=== PATIENT | female | born 1990 | race Caucasian/White ===

== ENCOUNTER 2017-06-24 20:30 | Observation (INO) | payer OTHER ==
[2017-06-24] MEDS ORDERED: Ondansetron HCl/PF 4 MG/2 ML Vial IVP PRN (21:13)
[2017-06-24 21:20] LABS: #Basophils 0.1 thou/uL (0.0-0.2); #Eosinphils 0.3 thou/uL (0.0-0.7); #Lymphocytes 3.5 thou/uL (1.20-3.40); #Monocytes 0.6 thou/uL (0.11-0.59); %Basophils 0.6 % (0.0-1.0); %Eosinophils 2.8 % (0.0-10.0); %Lymphocytes 33.6 % (21.0-51.0); Mean Corpuscular HGB CONC 36.1 g/dL (32.0-36.0); Mean Corpuscular Hemoglobin 32.5 pg (27.0-31.0); Mean Corpuscular Volume 90.2 fl (81.0-99.0); Mean Platelet Volume 7.5 fL (7.4-10.4); Platelet Count 225 thou/uL (130-400); RBC Distribution Width 11.1 % (11.5-14.5); White Blood Cell (WBC) Count 10.5 thou/uL (4.8-10.8)
[2017-06-24 21:25] LABS: Bilirubin Negative (Negative); Blood, Urine Negative (Negative); Clarity CLEAR (Clear); Glucose, Urine (Dipstick) Negative (Negative); Leukocyte Negative (Negative); Nitrite Negative (Negative); Protein, Urine (Dipstick) Negative (Neg-Trace); Specific Gravity, Urine 1.013 (1.002-1.036); Urobilinogen 0.2 mg/dL (0.2-1.0)
[2017-06-24 21:30] LABS: Bacteria/HPF None Seen HPF (None Seen); Hyaline Casts/LPF 0-3 HYALINE CAST LPF (0-3 Hyaline); Pathc Cast-AUWi Flag 0.54 (0-2.49); RBC/HPF 0-3 HPF (0-3); Squamous Epithelial 0-3 HPF (0-3); WBC/HPF 0-3 HPF (0-3)
[2017-06-24] MEDS ORDERED: Lactated Ringer's 1,000 ML IV SCH (21:30)
[2017-06-24] MEDS: Meperidine HCl/PF 25 MG/ML VIAL SLOW IVP PRN ×2 (21:31→23:47)
[2017-06-24] MEDS: Promethazine HCl 25 MG/ML VIAL IM PRN ×2 (21:31→23:47)
[2017-06-24] MEDS: Lactated Ringer's 1,000 ML IV SCH (21:47)
[2017-06-24 23:14] VITALS: BMI 25.8
[2017-06-25] MEDS: Meperidine HCl/PF 25 MG/ML VIAL SLOW IVP PRN ×2 (03:34→07:42)
[2017-06-25] MEDS: Promethazine HCl 25 MG/ML VIAL IM PRN ×2 (03:35→07:40)
--- NOTE | 2017-06-25 05:48 | HP ---
DATE OF ADMISSION: 06/24/2017 REASON FOR ADMISSION: Right lower quadrant and flank pain with nausea and vomiting. HISTORY OF PRESENT ILLNESS: Ms. Estrada is a 27-year-old primigravida at 21 weeks gestation who repor ts several days of intermittent right-sided back pain. This afternoon, she reports that became more intense radiated down into her groin and was exacerbated with a feeling of the need to vomit, urinate and defecate. She denies vaginal bleeding. She reports an active fetus. She denies contractions. 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 Unremarkable OB history. The antep artum record not available on the unit. PAST MEDICAL HISTORY: None. PAST SURGICAL HISTORY: [place] teeth. ALLERGIES: PENICILLIN. MEDICATIONS: vitamins. SOCIAL HISTORY: Denies tobacco, alcohol, IV drug use. FAMILY HISTORY: Noncontributory. REVIEW OF SYSTEMS: Noncontributory. PHYSICAL EXAMINATION: GENERAL: White female initially in acute pain, unable to get comfortable now, better and resting wit h Stadol 2 mg, Demerol 25 mg. VITAL SIGNS: Temperature 98.6, respirations 18, blood pressure 118/72. HEENT: Within normal limits. LUNGS: Clear to auscultation bilaterally. HEART: Regular rate and rhythm. ABDOMEN: The patient has pain in her back. She does not have CVA tenderness. She also has discomfo rt in her right lower quadrant and groin. EXTREMITIES: Without clubbing, cyanosis or edema. PELVIC: Deferred. FHTs 130s to 140s. No palpable contractions. LABORATORY AND X-RAY FINDINGS: Patient has a white count of 10.5, normal hematocrit, normal diff. U rinalysis was negative for rbc's. IMPRESSION: A 21 weeks gestation with symptoms and exam consistent with nephrolithiasis despite abse nce of rbc's in UA. PLAN: Observation admission, IV hydration, analgesics if necessary with serial exams. No evidence o f labor. We will not perform ultrasound or do cervical length check at this time. If condit ions change, we would consider further evaluation. We will re-evaluate renal colic in 6-8 hours.
[2017-06-25] MEDS: Lactated Ringer's 1,000 ML IV SCH (05:49)
--- NOTE | 2017-06-25 07:28 | PRG ---
DATE OF SERVICE: 06/25/2017 TIME OF SERVICE: 0700 The patient is resting comfortably. Upon awakening, she reports her pain to be at 3-4/10. It still and the right back, radiates to the front of the groin with mild nausea. She reports an active fetus . She denies vaginal bleeding. PHYSICAL EXAMINATION: Physical exam unchanged. Vital signs are stable. IMPRESSION: Persistent right flank pain still consistent with nephrolithiasis. PLAN: We will obtain a bilateral renal ultrasounds to evaluate the ureters and renal system. We simone l also get an OB ultrasound to evaluate the cervix for cervical length. Anticipate the patient has n ephrolithiasis or symptomatic hydronephrosis of . We will check patient out to Dr. Aldana taking over as OB Hospitalist today as well as to Alba Alvarado the patient's nurse talent management manager. May ne ed a Urology consultation.
[2017-06-25] MEDS ORDERED: Acetaminophen 1,000 MG in Premix Bag 1 BAG IVPB SCH (08:00)
--- NOTE | 2017-06-25 08:18 | ULT ---
RENAL ULTRASOUND: HISTORY: Right flank pain. 21 weeks . COMPARISON: None. TECHNIQUE: Sagittal and transverse imaging of the kidneys is performed. FINDINGS: Both kidneys have a normal cortical echotexture. The right kidney measures 11.3 x 5.7 x 5.1 cm. The left kidney measures 10.3 x 5.3 x 5.7 cm. There is a small amount of fullness in the right renal pe lvis without obvious calyceal dilatation. Bladder evaluation is limited as the patient was in the bathroom right when the scan was about to be performed. Both ureteral jets are identified. IMPRESSION: Mild right-sided hydronephrosis. Both ureteral jets are identified. POS: [facility]
[2017-06-25] MEDS ORDERED: traMADol HCl 50 MG TAB PO PRN ×2 (08:49)
[2017-06-25 09:09] VITALS: TEMP 98.7
[2017-06-25 09:14] VITALS: BP 98/54
--- NOTE | 2017-06-25 10:13 | ULT ---
ULTRASOUND OBSTETRICAL COMPLETE: DATE: 06/25/17. TIME: 7:16 a.m. HISTORY: A 27-year-old female in second trimester of who presents with right flank pain. FINDINGS: number: Richey. lie: Cephalic. Maternal cervix: 3.5 cm in length and closed. Placenta: Posterior. No placenta previa or abruption. Amniotic fluid volume: Subjectively normal. PAULA 12 cm. heart rate: 139 b.p.m. Tetal anatomy: Not evaluated in detail (patient reportedly had a anatomy scan earlier this month, according to power engineer). biometry: Head circumference (HC): 20.2 cm 22 w 3 d Biparietal diameter (BPD): 5.5 cm 22 w 5 d Abdominal circumference (AC): 17.4 cm 22 w 3 d Femur length (FL): 4.2 cm 23 w 4 d Average ultrasound age (AUA): 22 w 5 d Estimated date of delivery (ANANDA): 10/24/17. Last menstrual period (LMP): 01/22/17. Gestational age by LMP: 22 w 0 d. Estimated weight (EFW): 542 g+/- 80 g (1 lb 3 oz +/- 3 oz). IMPRESSION: 1. Live second trimester intrauterine gestation. 2. Estimated gestational age of 22 weeks, 5 days. 3. Cephalic lie. 4. No evidence of complications. JN R POS: OFF
[2017-06-25] MEDS ORDERED: Acetaminophen 500 MG TAB PO PRN (10:55)
--- NOTE | 2017-06-25 13:56 | DIS ---
DATE OF ADMISSION: 06/24/2017 DATE OF DISCHARGE: 06/25/2017 ADMITTING DIAGNOSES: 1. at 22 weeks. 2. Right flank pain. DISCHARGE DIAGNOSES: 1. at 22 weeks. 2. Right flank pain. 3. Suspected renal lithiasis. CONSULTATIONS: None. PROCEDURE: Renal ultrasound. HOSPITAL COURSE: Patient is a 27-year-old G1, P0 female with an intrauterine at 22 weeks, who is followed by Ms. Alba Alvarado in an outpatient setting for this , who presented to abor and Delivery with a several-day history of severe intermittent, radiated right-sided back pain. Her history and exam was suspicious for suspected nephrolithiasis. The patient was admitted for obs ervation for pain control. Given after about 12 hours of difficulty controlling pain, a renal ultras ound and OB ultrasound were performed, which were significant for normal-appearing fetus, posterior p lacenta, and in vertex presentation, and mild right-sided hydronephrosis with ureteral jets identifie d on both sides. Also of note, there was no obvious caliceal dilatation. With these findings, the p atient was converted from IV pain medication to p.o. She was placed on p.o. Tylenol and tramadol in preparation for discharge home. The patient has had [id number] pain over the last couple hours sin ce beginning tramadol and Tylenol and feels that the pain may be moving and trying to wrap around sug gesting this stone may be making its way out. The patient will be discharged to home with instructio ns to take 1 gram of Tylenol every 6 hours with tramadol 50 mg to be taken as needed for pain. She h as an appointment to follow up with Ms. Alba Alvarado in the next several days. Of note, urinalysis on arrival did not indicate any signs of infection, and no bacteria, and there was no white count wi th a left shift and patient was afebrile.
== END 2017-06-25 13:50 | disposition home or self-care (01) ==
LOC: L&D/OP 20:30 → L&D 21:17
PROVIDERS: ADMIT Obstetrics & Gynecology; ATTEND Obstetrics & Gynecology
DX: O99.89 Other specified diseases and conditions complicating pregnancy, childbirth and the puerperium (principal); R10.31 Right lower quadrant pain; R10.9 Unspecified abdominal pain; R11.2 Nausea with vomiting, unspecified; N13.30 Unspecified hydronephrosis; Z3A.22 22 weeks gestation of pregnancy; Z88.0 Allergy status to penicillin; Z98.818 Other dental procedure status
CPT/HCPCS: 76770; 76805; 81001; 85025; 87086; 96361; 96372; 96374; 96375; 96376; 99285; G0378; J0595; J2175; J2405; J2550

== ENCOUNTER 2017-08-16 23:44 | Emergency (ER) | payer OTHER ==
[2017-08-17 00:46] LABS: HIV (1/2) Antibody/Antigen Non-Reactive (NonReactive); Hep C IgG Ab Non-Reactive (NonReactive); Hep C Index 0.17 S/CO (0-0.79)
[2017-08-17 02:58] LABS: HBSAB Concentration 30.83 mIU/mL; Hep B Surf AB Reactive (NonReactive)
== END 2017-08-17 00:31 | disposition home or self-care (01) ==
LOC: ERS 23:44
DX: Z77.21 Contact with and (suspected) exposure to potentially hazardous body fluids (principal)
CPT/HCPCS: 36415; 86706; 86803; 87389; 99283

== ENCOUNTER 2017-10-22 15:03 | Inpatient (IN) | payer OTHER ==
[2017-10-22] MEDS ORDERED: Ondansetron HCl/PF 4 MG/2 ML Vial IVP PRN ×2 (15:12→17:45)
[2017-10-22] MEDS ORDERED: Lidocaine 1% (PF) 30 ML VIAL SC PRN (15:12)
[2017-10-22] MEDS ORDERED: Promethazine HCl 25 MG/ML VIAL IM PRN ×2 (15:12→17:45)
[2017-10-22] MEDS ORDERED: Butorphanol Tartrate 1 MG/ML VIAL SLOW IVP PRN (15:12)
[2017-10-22] MEDS ORDERED: HYDROcodone/Acetaminophen 5/325 mg Tablet PO PRN ×2 (15:12)
[2017-10-22] MEDS ORDERED: Misoprostol 200 MCG TAB PR PRN (15:12)
[2017-10-22] MEDS ORDERED: Ibuprofen 800 MG TAB PO PRN (15:12)
[2017-10-22] MEDS ORDERED: Bupivacaine 0.75% 13.4 ML, fentaNYL Citrate/PF 400 MCG in Sodium Chloride 0.9% 78.6 ML EPIDURAL SCH ×2 (15:15→18:00)
[2017-10-22] MEDS ORDERED: Lactated Ringer's 1,000 ML IV SCH (15:15)
[2017-10-22] MEDS ORDERED: DISCONTINUE ALL PREVIOUS NARCOTICS FS SCH (15:15)
[2017-10-22 15:25] LABS: Hemoglobin 12.6 g/dL (12.0-16.0); Mean Corpuscular HGB CONC 35.7 g/dL (32.0-36.0); Mean Corpuscular Hemoglobin 29.9 pg (27.0-31.0); Mean Corpuscular Volume 83.9 fl (81.0-99.0); Mean Platelet Volume 7.6 fL (7.4-10.4); Platelet Count 218 thou/uL (130-400); RBC Distribution Width 11.7 % (11.5-14.5); White Blood Cell (WBC) Count 14.6 thou/uL (4.8-10.8)
[2017-10-22 15:39] VITALS: BMI 25.8
[2017-10-22 16:18] LABS: Hep B Surf Ag Non-Reactive S/CO (NonReactive); Syphilis Antibody Nonreactive (Nonreactive); Syphilis Antibody Index 0.03 S/CO (<1.00 Non-Reactive)
[2017-10-22] MEDS: Lactated Ringer's 1,000 ML IV SCH ×2 (16:22→22:00)
[2017-10-22] MEDS ORDERED: Communication Order-Pharmacy FS SCH (17:45)
[2017-10-22] MEDS ORDERED: Naloxone HCl 0.4 mg/ml Vial IVP PRN ×2 (17:45)
[2017-10-22] MEDS ORDERED: Eucerin (Mineral Oil/Petrolatum,White) 30 gm Jar TOP PRN (17:45)
[2017-10-22] MEDS ORDERED: Lactated Ringer's 500 ML IV PRN (17:45)
[2017-10-22] MEDS ORDERED: diphenhydrAMINE 50 MG/ML VIAL IVP PRN (17:45)
[2017-10-22] MEDS ORDERED: Fentanyl 4mcg/Marcaine 0.1% Cassette 100 ML EPIDURAL SCH (17:45)
[2017-10-22] MEDS ORDERED: Acetaminophen 325 MG TAB PO PRN (17:45)
[2017-10-22] MEDS ORDERED: ePHEDrine/0.9% NaCl/PF SYRINGE 50 mg/10 ml SLOW IVP PRN (17:45)
--- NOTE | 2017-10-22 18:27 | PDOC.LDHP ---
Labor and Delivery H&P Chief complaint: contractions HPI: started clemente at 11 am with contractions getting closer together and stronger. denies and leaking of fluid Current gestational age (weeks): 39 Due date: 10/28/17 Dating criteria: last menstrual period Grav: 1 Para: 2 Abnormal US findings: No Current medications: pre-sharmaine vitamins Previous surgical history: none (wisdom teeth) Allergies/Adverse Reactions: Allergies Allergy/AdvReac Type Severity Reaction Status Date / Time Penicillins Allergy Mild Rash Verified 10/22/17 15:26 Social history: none - Physical Exam Vital signs reviewed and normal: yes General: breathing through contractions Heart: RRR Lungs: nonlabored breathing Abdomen: gravid Extremeties: trace edema FHT: category 1 - Vaginal Exam cm dilated: 4 Effacement: 100% Station: 0 - OB Labs Blood type: A RH: negative Antibody Screen: negative HIV: negative RPR: negative HEPSAg: negative 1 hour GCT: negative GBS: negative Urine drug screen: not done Rubella: immune - Assessment L&D Assessment: term patient in labor - Plan Plan: admit to L&D, labor augmentation if indicated (anticipate ), anesthesia consult for pain management
--- NOTE | 2017-10-22 18:30 | PDOC.LDPN ---
Labor & Delivery Progress Note - Subjective Subjective: comfortable (with epidural) - Objective Vital signs reviewed and normal: yes General: resting Uterine fundus: non tender Dilation: 5 Effacement: 100% Station: 0 FHT: category 1 [place] contractions every: q3 AROM: meconium stained fluid - Assessment (1) Primigravida Code(s): Z34.00 - ENCNTR FOR SUPRVSN OF NORMAL FIRST , UNSP TRIMESTER Current Visit: Yes Status: Acute (2) 39 weeks gestation of Code(s): Z3A.39 - 39 WEEKS GESTATION OF Current Visit: Yes Status : Acute (3) Rh negative status during in third trimester Code(s): O09.893 - SUPERVISION OF OTHER HIGH RISK PREGNANCIES, THIRD TRIMESTER; Z67.91 - UNSPECIFIED BLOOD TYPE, RH NEGATIVE Current Visit: Yes Status: Acute Plan: continue plan of care -: anticipate . nursery notified of light meconium.
[2017-10-23] MEDS: NS / Oxytocin 40 units/1000ml 1,000 ML IV PRN ×2 (02:10→03:27)
[2017-10-23] MEDS ORDERED: NS / Oxytocin 40 units/1000ml 1,000 ML IV SCH (05:31)
[2017-10-23] MEDS ORDERED: Adacel (T-DAP) 0.5 ML VIAL IM ONE (05:31)
[2017-10-23] MEDS ORDERED: Measles/Mumps/Rubella 10 MCG/0.5 ML VIAL SC ONE (05:31)
[2017-10-23] MEDS ORDERED: Benzocaine/Menthol 20-0.5% 60 ML CAN TOP PRN (05:31)
[2017-10-23] MEDS ORDERED: HYDROcodone/Acetaminophen 5/325 mg Tablet PO PRN (05:31)
[2017-10-23] MEDS ORDERED: Methylergonovine 0.2 MG/ML VIAL IM PRN (05:31)
[2017-10-23] MEDS ORDERED: Varicella virus, LIVE 0.5 ML VIAL SC ONE (05:31)
[2017-10-23] MEDS ORDERED: Bisacodyl 10 MG SUPP PR PRN (05:31)
[2017-10-23] MEDS ORDERED: Milk Of Magnesia 30 ML UDCUP PO PRN (05:31)
[2017-10-23] MEDS ORDERED: Misoprostol 200 MCG TAB VAG SCH (05:31)
[2017-10-23] MEDS ORDERED: Lanolin Ointment 7 GM TUBE TOP PRN (05:31)
--- NOTE | 2017-10-23 05:44 | OP ---
DATE OF PROCEDURE: 10/23/2017 TIME OF SERVICE: 0200 PREOPERATIVE DIAGNOSES: tachycardia to 190s to 200. After approximately 2 hours of pushing. Estimated weight 6-1/2 to 7 pounds, OA presentation, complete, complete +4. Thin meconium. POSTOPERATIVE DIAGNOSES: tachycardia 190s to 200. After approximately 2 hours of pushing. Es timated weight 6-1/2 to 7 pounds, 0A presentation and complete +4. Thin meconium. Nuchal cord x1. PROCEDURE: Outlet vacuum extraction with first to second degree midline laceration. SURGEON: Fredis Villalta M.D. SLEEVE TAILOR: Alba Alvarado CNM. ANESTHESIA: Epidural. ESTIMATED BLOOD LOSS: 300 mL. SPECIMENS REMOVED: Placenta with 3-vessel cord to pathology. OPERATIVE FINDINGS: 1. Vigorous female , 7 and 8 Apgars, weight pending, to nursery at 0206. 2. First to second degree midline laceration repaired with 2-0 chromic. 3. Approximately 30 seconds of vacuum in green zone with no pop offs. 4. Correct counts at the end of the procedure. DISPOSITION: Routine recovery. DESCRIPTION OF PROCEDURE: I was called to the room because of prolonged second stage of labor with f etal tachycardia, maternal exhaustion, and thin meconium. Assessment revealed that the bladder was w ell drained. The head position was well established at essentially straight OA and that there was ad equate room in the pelvis for operative vaginal delivery. The patient gave verbal informed consent. The vacuum was applied and taken to the yellow zone on the vacuum meter. After approximately 60 sec onds the patient initiated a contraction which the vacuum was taken to green and traction was applied for approximately 30 seconds prior to delivery. was delivered over a perineum and developed a first degree laceration. The infant's head was delivered, delivered through the nuchal cord and pl aced on the maternal abdomen. After approximately 1-1/2 minutes, the cord was clamped and cut. Neon atal team examined the baby. Usual cord blood was obtained. The placenta delivered spontaneously in less than 5 minutes. Inspection of the perineum revealed first to second degree laceration, which w as repaired using a 2-0 chromic in a running locking usual manner. Further inspection of the vagina revealed no significant lacerations. Coronado catheter was replaced. Counts were correct.
[2017-10-23] MEDS: Ibuprofen 800 MG TAB PO SCH ×3 (06:18→20:52)
[2017-10-23] MEDS ORDERED: Sodium Chloride 0.9% 10 ML ONE (09:03)
[2017-10-23] MEDS: Docusate Calcium (SURFAK) 240 MG CAP PO SCH ×2 (09:20→20:52)
[2017-10-23] MEDS: Prenatal Vitamin 1 TAB PO SCH (09:20)
[2017-10-23] MEDS: Ferrous Sulfate 325 MG TAB PO SCH ×2 (09:20→18:16)
--- NOTE | 2017-10-23 13:46 | PDOC.PP ---
Post Progress Note Post Day #: 0 Subjective: doing well. tired. well on right side not left breast. PO intake tolerated: yes Flatus: yes Ambulation: yes Vital Signs (12 hours) Temp Pulse Resp BP 10/23/17 12:45 97.9 F 92 18 10/23/17 12:00 97.9 F 92 18 112/67 10/23/17 07:59 98.5 F 97 18 112/58 L 10/23/17 07:50 98.5 F 97 18 10/23/17 06:15 98.1 F 95 18 114/65 10/23/17 05:25 98.6 F 89 18 114/55 L Weight Weight 160 lb - Physical Examination General: NAD Cardiovascular: no m/r/g, RRR Respiratory: non-labored breathing Abdominal: lochia Extremities: negative homans (B) Skin: no rash Neurological: no gross focal deficits Psychiatric: A&Ox3, normal affect Result Diagrams: 10/22/17 15:21 Additional Labs: Post Labs Blood Type A NEGATIVE 10/22/17 15:21 Hep Bs Antigen Non-Reactive S/CO (NonReactive) 10/22/17 15:21 (1) Primigravida Code(s): Z34.00 - ENCNTR FOR SUPRVSN OF NORMAL FIRST , UNSP TRIMESTER Status: Acute (2) 39 weeks gestation of Code(s): Z3A.39 - 39 WEEKS GESTATION OF Status: Acute (3) Rh negative status during in third trimester Code(s): O09.893 - SUPERVISION OF OTHER HIGH RISK PREGNANCIES, THIRD TRIMESTER; Z67.91 - UNSPECIFIED BLOOD TYPE, RH NEGATIVE Status: Acute - Assessment/Plan A: G1 now P1 SP Vaccuume assisted vaginal delivery P: routine care. follow up plan for discharge
[2017-10-23] MEDS: HYDROcodone/Acetaminophen 5/325 mg Tablet PO PRN ×2 (19:06→22:14)
[2017-10-24 05:30] LABS: Hemoglobin 9.8 g/dL (12.0-16.0); Mean Corpuscular HGB CONC 33.8 g/dL (32.0-36.0); Mean Corpuscular Hemoglobin 29.5 pg (27.0-31.0); Mean Corpuscular Volume 87.3 fL (78.0-98.0); Mean Platelet Volume 7.8 fL (7.4-10.4); Platelet Count 180 thou/uL (130-400); RBC Distribution Width 11.8 % (11.5-14.5); Red Blood Cell (RBC) Count 3.32 mill/uL (4.20-5.40); White Blood Cell (WBC) Count 11.8 thou/uL (4.8-10.8)
[2017-10-24] MEDS: Ibuprofen 800 MG TAB PO SCH ×3 (06:03→22:52)
[2017-10-24] MEDS: HYDROcodone/Acetaminophen 5/325 mg Tablet PO PRN (06:03)
[2017-10-24] MEDS: Docusate Calcium (SURFAK) 240 MG CAP PO SCH ×2 (09:08→22:52)
[2017-10-24] MEDS: Prenatal Vitamin 1 TAB PO SCH (09:08)
[2017-10-24] MEDS: Ferrous Sulfate 325 MG TAB PO SCH ×2 (09:08→18:08)
[2017-10-25] MEDS: Ibuprofen 800 MG TAB PO SCH ×2 (07:28→08:59)
[2017-10-25 08:06] VITALS: BP 111/65; TEMP 98.8
[2017-10-25] MEDS: Prenatal Vitamin 1 TAB PO SCH (08:59)
[2017-10-25] MEDS: Docusate Calcium (SURFAK) 240 MG CAP PO SCH (09:00)
[2017-10-25] MEDS: Ferrous Sulfate 325 MG TAB PO SCH (09:00)
== END 2017-10-25 11:15 | disposition home or self-care (01) | DRG 775 ==
LOC: L&D 15:03 → 3SW 10-23 05:26
PROVIDERS: ADMIT Student in an Organized Health Care Education/Training Program; ATTEND Student in an Organized Health Care Education/Training Program
PROC: 10D07Z6 Extraction of Products of Conception, Vacuum, Via Natural or Artificial Opening (ICD-10-PCS; principal; 2017-10-23)
PROC: 0KQM0ZZ Repair Perineum Muscle, Open Approach (ICD-10-PCS; 2017-10-23)
DX: O76 Abnormality in fetal heart rate and rhythm complicating labor and delivery (principal); O77.0 Labor and delivery complicated by meconium in amniotic fluid; O69.81X0 Labor and delivery complicated by cord around neck, without compression, not applicable or unspecified; O70.1 Second degree perineal laceration during delivery; O63.1 Prolonged second stage (of labor); Z3A.39 39 weeks gestation of pregnancy; Z37.0 Single live birth
CPT/HCPCS: 36415; 51702; 76815; 85027; 85461; 86780; 86850; 86870; 86900; 86901; 87340; 88307; 90384; 96372; A4216; J0595; J2001; J2405; J3010; J7050

== ENCOUNTER 2019-02-20 07:13 | Emergency (ER) | payer BC, OTHER ==
[2019-02-20] MEDS ORDERED: Morphine 4 MG/ML VIAL ONE ×2 (07:35→08:46)
[2019-02-20] MEDS ORDERED: Ondansetron PF 4 MG/2 ML Vial ONE (07:35)
[2019-02-20 07:58] LABS: Hemoglobin 13.7 g/dL (12.0-16.0); Mean Corpuscular HGB CONC 34.7 g/dL (32.0-36.0); Mean Corpuscular Hemoglobin 30.6 pg (27.0-31.0); Mean Corpuscular Volume 88.2 fL (78.0-98.0); Mean Platelet Volume 7.7 fL (7.4-10.4); Platelet Count 245 thou/uL (130-400); RBC Distribution Width 11.1 % (11.5-14.5); Red Blood Cell (RBC) Count 4.47 mill/uL (4.20-5.40); White Blood Cell (WBC) Count 7.9 thou/uL (4.8-10.8)
[2019-02-20 08:08] LABS: ALT (SGPT) 15 U/L (8-55); AST (SGOT) 13 U/L (5-34); Albumin 4.7 g/dL (3.5-5.0); Alkaline Phosphatase 58 U/L (40-110); Anion Gap 13 mmol/L (10-20); BUN (Urea Nitrogen) 13 mg/dL (7.0-18.7); Bilirubin, Total 0.3 mg/dL (0.2-1.2); Calc. Creatinine Clearance 0 mL/min (70-130); Calcium 9.5 mg/dL (7.8-10.44); Carbon Dioxide 27 mmol/L (22-29); Chloride 99 mmol/L (98-107); Estimated GFR-MDRD 76; Globulin 3.1 g/dL (2.4-3.5); Glucose 97 mg/dL (70-105); Lipase 11 U/L (8-78); Potassium 3.5 mmol/L (3.5-5.1); Protein, Total 7.8 g/dL (6.0-8.3); Sodium 135 mmol/L (136-145)
[2019-02-20 08:18] LABS: Bilirubin Negative (Negative); Blood, Urine Negative (Negative); Clarity Clear (Clear); Glucose, Urine (Dipstick) Normal (Negative); Leukocyte Negative Leu/uL (Negative); Nitrite Negative (Negative); Protein, Urine (Dipstick) Negative (Neg-Trace); Urobilinogen Normal mg/dL (Less than 2)
[2019-02-20 08:22] LABS: Band 1 % (5-11); Eosinophils 3 % (0-10); Lymphocytes 53 % (21-51); MDiff Complete? YES; Monocytes 4 % (0-10); Neutrophil 34 % (42-75); RBC Morphology Normal; Reactive Lymphocytes 5 % (0-10)
[2019-02-20 08:28] LABS: Pregnancy Test - Urine (BHCG) Negative (Negative); Pregu Control Background? CLEAR/WHITE (CLR/WHITE); Pregu Control Bar Appear? YES (CONTROL BAR); Specific Gravity 1.007 (1.002-1.036)
[2019-02-20] MEDS ORDERED: traMADol HCl 50 MG TAB ONE (09:40)
--- NOTE | 2019-02-20 10:23 | CT ---
CT ABDOMEN AND PELVIS WITH IV CONTRAST: INDICATION: Abdominal pain. FINDINGS: Lung bases are clear. Liver, spleen, and pancreas unremarkable. Adrenal glands and kidneys unremarkable. Urinary bladder distended but otherwise unremarkable. Small bowel loops appear normal. Appendix appears normal. Prominent stool throughout the colon. Ao rta and retroperitoneum unremarkable with nonspecific lymph nodes. Images through the pelvis reveal a right adnexal cyst consistent with right ovarian cyst which measur es up to 3 cm. Another smaller follicular cyst in the right ovary. There is a moderate amount of fr ee fluid within the cul-de-sac. IMPRESSION: Right adnexal cyst, probably ovarian. A moderate amount of free fluid in the cul-de-sac. Correlate with serum test to rule out ectopic. If serum test is negative, recommend follow up pelvic ultrasound in 4-6 weeks to assess resolution of the ovarian cyst. POS: OFF
== END 2019-02-20 10:08 | disposition home or self-care (01) ==
LOC: ERS 07:13
DX: N83.201 Unspecified ovarian cyst, right side (principal); E78.1 Pure hyperglyceridemia; E78.5 Hyperlipidemia, unspecified
CPT/HCPCS: 74177; 80053; 81003; 81025; 83690; 85025; 96361; 96374; 96375; 96376; J2270; J2405

== ENCOUNTER 2019-03-25 15:05 | Outpatient (CLI) | payer BC | END 2019-03-25 15:06 | disposition home or self-care (01) | LOC: CTENTCT 15:05 | PROVIDERS: ATTEND Otolaryngology Plastic Surgery within the Head & Neck | DX: J32.9 Chronic sinusitis, unspecified (principal) | CPT/HCPCS: 70486 ==

== ENCOUNTER 2020-02-18 22:23 | Inpatient (IN) | payer BC ==
[~2020-02-18 22:23] MED LIST: Bupivacaine HCl 0.5%/Epinephrine 1:200,000/PF 30 ml Vial ONE; Bupivacaine/Epinephrine 0.25% 30 ML VIAL ONE
[2020-02-18] MEDS ORDERED: Butorphanol Tartrate 1 MG/ML VIAL SLOW IVP PRN (22:54)
[2020-02-18] MEDS ORDERED: HYDROcodone/Acetaminophen 5/325 mg Tablet PO PRN (22:54)
[2020-02-18] MEDS ORDERED: Ondansetron PF 4 MG/2 ML Vial IVP PRN ×2 (22:54→23:37)
[2020-02-18] MEDS ORDERED: NS / Oxytocin 40 units/1000ml 1,000 ML IV PRN (22:54)
[2020-02-18] MEDS ORDERED: Lidocaine 1% (PF) 30 ML VIAL SC PRN (22:54)
[2020-02-18] MEDS ORDERED: hydrALAZINE 20 MG/ML VIAL SLOW IVP PRN (22:54)
[2020-02-18] MEDS ORDERED: Ibuprofen 800 MG TAB PO PRN (22:54)
[2020-02-18] MEDS ORDERED: Lactated Ringer's 1,000 ML IV SCH (23:00)
[2020-02-18 23:14] LABS: Hemoglobin 10.1 g/dL (12.0-16.0); Mean Corpuscular HGB CONC 34.4 g/dL (32.0-36.0); Mean Corpuscular Hemoglobin 27.9 pg (27.0-31.0); Mean Corpuscular Volume 81.1 fL (78.0-98.0); Mean Platelet Volume 8.4 fL (7.4-10.4); Platelet Count 214 thou/uL (130-400); RBC Distribution Width 13.1 % (11.5-14.5); Red Blood Cell (RBC) Count 3.61 mill/uL (4.20-5.40); White Blood Cell (WBC) Count 9.5 thou/uL (4.8-10.8)
[2020-02-18] MEDS ORDERED: Fentanyl 4 mcg/Bup 0.1% Cadd 100 ML ONE (23:20)
[2020-02-18] MEDS ORDERED: EPHEDRINE 25 MG/5 ML SYRINGE SLOW IVP PRN (23:37)
[2020-02-18] MEDS ORDERED: diphenhydrAMINE 50 MG/ML VIAL IVP PRN (23:37)
[2020-02-18] MEDS ORDERED: Lactated Ringer's 500 ML IV PRN (23:37)
[2020-02-18] MEDS ORDERED: Acetaminophen 325 MG TAB PO PRN (23:37)
[2020-02-18] MEDS ORDERED: Promethazine HCl 25 MG/ML VIAL IM PRN (23:37)
[2020-02-18] MEDS ORDERED: Naloxone HCl 0.4 mg/ml Vial IVP PRN ×2 (23:37)
[2020-02-18] MEDS ORDERED: Fentanyl 4 mcg/Bupivacaine 0.1% Cassette 100 ML EPIDURAL SCH (23:45)
[2020-02-18] MEDS ORDERED: Communication Order-Pharmacy FS SCH (23:45)
[2020-02-18 23:53] LABS: Syphilis Antibody Nonreactive (Nonreactive); Syphilis Antibody Index 0.02 S/CO (<1.00 Non-Reactive)
[2020-02-19 00:45] VITALS: BMI 27.3
[2020-02-19 01:16] LABS: HBSAg Index 0.19 S/CO (0-0.99); Hep B Surf Ag Non-Reactive S/CO (NonReactive)
[2020-02-19] MEDS ORDERED: NS w/ Oxytocin 10 units 500 ML IVPB SCH (05:00)
[2020-02-19] MEDS ORDERED: Fentanyl 4 mcg/Bup 0.1% Cadd 100 ML ONE (05:07)
[2020-02-19] MEDS ORDERED: Fentanyl 100 MCG/2 ML VIAL ONE (05:11)
[2020-02-19] MEDS ORDERED: Lidocaine 1% (PF) 30 ML VIAL ONE (06:40)
[2020-02-19] MEDS ORDERED: NS / Oxytocin 40 units/1000ml 1,000 ML ONE (06:40)
--- NOTE | 2020-02-19 07:42 | PDOC.LDHP ---
Labor and Delivery H&P Chief complaint: contractions HPI: Pt started contraction yesterda at 1700. by 2200, she was unable to talk through them and came to the hospital. She denies SROM. Affirms movement. Current gestational age (weeks): 37 (3) Due date: 03/07/20 Dating criteria: last menstrual period Grav: 2 Para: 1 OB History Details: x 1 2018 at 39.1 6lb 9 oz Current complications: other ( contractions) Abnormal US findings: No Past Medical History: FAMILY HISTORY OF G6PD in Brother. Current medications: pre- vitamins, other (Nifedipine PRN for contractions.) Previous surgical history: none Allergies/Adverse Reactions: Allergies Allergy/AdvReac Type Severity Reaction Status Date / Time Penicillins Allergy Mild Rash Verified 01/19/20 11:18 - Physical Exam Vital signs reviewed and normal: yes General: breathing through contractions Lungs: nonlabored breathing Abdomen: gravid Extremeties: no edema FHT: category 1 - Vaginal Exam cm dilated: 5 Effacement: 100% Station: -1 - OB Labs Blood type: A RH: negative Antibody Screen: negative HIV: negative RPR: negative HEPSAg: negative 1 hour GCT: negative GBS: negative Urine drug screen: negative Rubella: immune - Assessment L&D Assessment: term patient in labor - Plan Plan: admit to L&D, informed consent obtained, anesthesia consult for pain management
--- NOTE | 2020-02-19 07:47 | PDOC.OPDEL ---
OB Operative/Delivery Note Delivery Dr/Surgeon: Light Pre-Delivery Diagnosis: active labor Procedure/Post Delivery Dx: spontaneous vaginal delivery Weeks gestation: 37 Anesthesia: epidural - Findings A Sex: male Weight: 7 lb 14 oz - 1 min: 8 - 5 min: 9 - Additional Findings/Plan Placenta delivered: spontaneous Repaired Obstetrical Laceration: 1st degree Estimated blood loss: 250mL see RN note for QBL Post delivery plan: routine recovery
[2020-02-19] MEDS ORDERED: Misoprostol 200 MCG TAB ONE (08:05)
[2020-02-19] MEDS: Lactated Ringer's 1,000 ML IV SCH (08:29)
[2020-02-19] MEDS ORDERED: Misoprostol 200 MCG TAB PR SCH (08:45)
[2020-02-19] MEDS ORDERED: Lanolin Ointment 7 GM TUBE TOP PRN (08:56)
[2020-02-19] MEDS ORDERED: Benzocaine-Menthol 82.5 ML CAN TOP PRN (08:56)
[2020-02-19] MEDS ORDERED: HYDROcodone/Acetaminophen 5/325 mg Tablet PO PRN ×2 (08:56)
[2020-02-19] MEDS ORDERED: Milk Of Magnesia 30 ML UDCUP PO PRN (08:56)
[2020-02-19] MEDS ORDERED: NS / Oxytocin 40 units/1000ml 1,000 ML IV SCH (08:56)
[2020-02-19] MEDS ORDERED: Bisacodyl 10 MG SUPP PR PRN (08:56)
[2020-02-19] MEDS ORDERED: hydrALAZINE 20 MG/ML VIAL SLOW IVP PRN (08:56)
[2020-02-19] MEDS ORDERED: Adacel (T-DAP) 0.5 ML SYRINGE IM ONE (08:56)
[2020-02-19] MEDS ORDERED: Methylergonovine 0.2 MG/ML VIAL IM PRN (08:56)
[2020-02-19] MEDS ORDERED: Ferrous Sulfate 325 MG TAB PO SCH (09:15)
[2020-02-19] MEDS: Docusate Calcium (SURFAK) 240 MG CAP PO SCH ×2 (10:56→19:51)
[2020-02-19] MEDS: Prenatal Vitamin 1 TAB PO SCH (10:57)
[2020-02-19] MEDS: Ibuprofen 800 MG TAB PO SCH ×2 (10:57→19:51)
[2020-02-19 12:54] LABS: SARS-CoV-2 MS2 Positive; SARS-CoV-2 N Gene Negative; SARS-CoV-2 S Gene Negative; SARS-CoV-2 by NAA Not Detected (NotDetected); SARS-CoV-2 orf1ab Negative
[2020-02-19] MEDS ORDERED: Sodium Chloride 0.9% 10 ML ONE (13:23)
[2020-02-19] MEDS: Ferrous Sulfate 325 MG TAB PO SCH (15:46)
[2020-02-20] MEDS: Ibuprofen 800 MG TAB PO SCH ×3 (05:30→20:44)
[2020-02-20] MEDS: Prenatal Vitamin 1 TAB PO SCH (08:58)
[2020-02-20] MEDS: Docusate Calcium (SURFAK) 240 MG CAP PO SCH ×2 (08:58→20:44)
[2020-02-20] MEDS: Ferrous Sulfate 325 MG TAB PO SCH ×2 (08:58→18:46)
[2020-02-20] MEDS ORDERED: FLU VACC QS2020-21(6MOS UP)/PF 60 MCG/0.5 ML SYRINGE IM ONE ×2 (09:00)
--- NOTE | 2020-02-20 13:28 | PDOC.PP ---
Post Progress Note Post Day #: 1 Subjective: Pt is doing well. Infant has woken up and started to eat. pt is urinating and has already had a BM PO intake tolerated: yes Flatus: yes Ambulation: yes Vital Signs (12 hours) Temp Pulse Resp BP Pulse Ox 02/20/20 08:13 97.9 F 74 20 111/59 L 98 02/20/20 05:17 98.2 F 85 16 119/61 Weight Weight 175 lb - Physical Examination General: NAD Cardiovascular: RRR Respiratory: non-labored breathing Abdominal: no distention Extremities: negative homans (B) Skin: no rash Neurological: no gross focal deficits Psychiatric: A&Ox3, normal affect Result Diagrams: 02/18/20 23:03 Additional Labs: Post Labs Hep Bs Antigen Non-Reactive S/CO (NonReactive) 02/18/20 23:03 Blood Type A NEGATIVE 02/18/20 23:03 (1) (spontaneous vaginal delivery) Code(s): O80 - ENCOUNTER FOR FULL-TERM UNCOMPLICATED DELIVERY Status: Acute - Assessment/Plan A: s/p with NML exam. P: routine care Discharge home tomorrow.
[2020-02-21] MEDS: Ibuprofen 800 MG TAB PO SCH ×2 (04:57→13:35)
[2020-02-21] MEDS: Ferrous Sulfate 325 MG TAB PO SCH (07:07)
[2020-02-21 08:27] VITALS: BP 125/65; TEMP 98.7
[2020-02-21] MEDS: Prenatal Vitamin 1 TAB PO SCH (08:33)
[2020-02-21] MEDS: Docusate Calcium (SURFAK) 240 MG CAP PO SCH (08:33)
== END 2020-02-21 14:15 | disposition home or self-care (01) | DRG 807 ==
LOC: L&D/OP 22:23 → L&D 22:54 → 3SW 02-19 12:32
PROVIDERS: ADMIT Obstetrics & Gynecology; ATTEND Obstetrics & Gynecology
PROC: 10E0XZZ Delivery of Products of Conception, External Approach (ICD-10-PCS; principal; 2020-02-19)
PROC: 0HQ9XZZ Repair Perineum Skin, External Approach (ICD-10-PCS; 2020-02-19)
PROC: 3E0234Z Introduction of Serum, Toxoid and Vaccine into Muscle, Percutaneous Approach (ICD-10-PCS; 2020-02-19)
DX: O69.81X0 Labor and delivery complicated by cord around neck, without compression, not applicable or unspecified (principal); Z37.0 Single live birth; Z20.828 Contact with and (suspected) exposure to other viral communicable diseases; O70.0 First degree perineal laceration during delivery; Z3A.37 37 weeks gestation of pregnancy; Z88.0 Allergy status to penicillin
CPT/HCPCS: 36415; 51702; 85027; 85461; 86780; 86850; 86870; 86900; 86901; 87340; 87635; 90384; 96372; 99285; J2001; J2405; J2590; J3010; U0003